=== PATIENT | male | born 1960 | race Caucasian/White ===

== ENCOUNTER 2020-06-04 17:53 | Inpatient (IN) ==
[2020-06-04 18:24] LABS: Basophils # 0.1 10*3/uL (0.0-0.2); Basophils % 0.5 % (0.0-0.8); Eosinophils # 0.3 10*3/uL (0.0-0.87); Eosinophils % 2.9 % (0.00-10.9); Hematocrit 43.8 VOL% (42.0-52.0); Hemoglobin 14.6 GM/DL (14.0-18.0); Immature Granulocytes % 0.3 %; Immature Granulocytes Absolute 0.03 #; Lymphocytes # 2.2 10*3/uL (1.4-4.0); Lymphocytes % 23.9 % (21.2-54.2); Mean Corpuscular HGB Conc 33.3 GM/DL (32-36); Mean Corpuscular Volume 88.3 FL (87-102); Mean Platelet Volume 9.9 FL (9.6-12.0); Monocytes % 7.9 % (1.7-12.7); Neutrophils % 64.5 % (38.7-73.9); Platelet Count 179 T/CUMM (130-400); Red Blood Count 4.96 MC/CUMM (3.8-5.5); Red Cell Distribution Width 13.9 % (9.3-17.3); White Blood Count 9.2 T/CUMM (4-12)
[2020-06-04 18:49] LABS: PT Patient Result 10.9 SECS (9.8-11.9)
[2020-06-04 18:59] LABS: Alanine Aminotransferase 50 U/L (16-61); Albumin 3.9 G/DL (3.4-5.0); Alkaline Phosphatase 84 U/L (45-117); Aspartate Amino Transferase 24 U/L (0-37); Bilirubin,Total < 0.39 MG/DL (0.2-1.0); Blood Urea Nitrogen 15 MG/DL (7-18); Calcium 9.2 MG/DL (8.5-10.1); Estimated Glom Filtration Rate 95 ML/MIN; Glucose 105 MG/DL (74-106); Osmolality,Calculated 283.1 MOS/KG (273-304); Total Protein 7.1 G/DL (6.4-8.3)
[2020-06-04] MEDS ORDERED: AMIODARONE INJ 450 MG in DEXTROSE 5% 241 ML IV SCH (20:12)
[2020-06-04] MEDS ORDERED: MAGNESIUM SULF RIDER 4 GM in PREMIX 1 EACH IV PRN (20:12)
[2020-06-04] MEDS ORDERED: MAGNESIUM SULF RIDER 2 GM in PREMIX 1 EACH IV PRN (20:12)
[2020-06-04 21:05] LABS: Bilirubin,Urine Negative (Negative); Blood, Urine Small mg/dL (Negative); Glucose,Urine (UA) Negative (Negative); Ketones,Urine Negative (Negative); Mucus,Urine Occasional /LPF (Occasional); Nitrite,Urine Negative (Negative); Protein,Urine Negative; RBC,Urine 2 /HPF (0-4); Squamous Epithelial Cell,Urine Occasional /HPF (0-10); Urine Appearance CLEAR (Clear); Urine Color Yellow (Yellow); Urine Specific Gravity 1.019 (1.001-1.035); Urine Urobilinogen < 2.0 EU/DL (0.2-1.0)
[2020-06-04 21:16] LABS: Barbiturates Screen,Urine Negative (Negative); Benzodiazepines Screen,Urine Negative (Negative); Cannabinoid Screen,Urine Negative (Negative); Opiate Screen,Urine Negative (Negative); Phencyclidine Screen,Urine Negative (Negative)
[2020-06-04] MEDS ORDERED: AMIODARONE INJ 150 MG in DEXTROSE 5% 100 ML IV ONE (22:30)
[2020-06-04] MEDS ORDERED: METOPROLOL TARTRATE 25 MG TABLET PO ONE (23:13)
[2020-06-04] MEDS: METOPROLOL TARTRATE 5 MG/5 ML VIAL IV SCH (23:21)
[2020-06-04] MEDS ORDERED: FUROSEMIDE 40 MG/4 ML VIAL IV ONE (23:39)
[2020-06-04] MEDS ORDERED: HYDROmorphone 2 MG/1 ML VIAL IV ONE (23:56)
[2020-06-05] MEDS ORDERED: MIDAZOLAM 10 MG/2 ML VIAL IV ONE (00:02)
[2020-06-05] MEDS ORDERED: diphenhydrAMINE CAP 25 MG CAPSULE PO ONE (00:03)
[2020-06-05] MEDS ORDERED: DIAZEPAM 5 MG TABLET PO ONE ×2 (00:04→09:06)
[2020-06-05] MEDS ORDERED: DIAZEPAM 5 MG TABLET ONE (00:13)
[2020-06-05] MEDS ORDERED: LIDOCAINE 1% 20 ML VIAL ONE (00:32)
[2020-06-05] MEDS ORDERED: MIDAZOLAM 2 MG/2 ML VIAL ONE (00:32)
[2020-06-05] MEDS ORDERED: HYDROmorphone 2 MG/1 ML VIAL ONE (00:32)
[2020-06-05] MEDS: METOPROLOL TARTRATE 5 MG/5 ML VIAL IV SCH ×2 (01:36→01:37)
[2020-06-05] MEDS: METOPROLOL TARTRATE 25 MG TABLET PO SCH ×2 (01:37→09:25)
[2020-06-05 02:25] LABS: Troponin I 0.527 NG/ML (0.00-0.045)
[2020-06-05] MEDS: LORazepam 2 MG/1 ML VIAL IV PRN ×2 (03:25→09:25)
[2020-06-05] MEDS: AMIODARONE INJ 450 MG in DEXTROSE 5% 241 ML IV SCH ×2 (04:49→16:21)
[2020-06-05 04:59] LABS: Basophils % 0.2 % (0.0-0.8); Eosinophils # 0.1 10*3/uL (0.0-0.87); Eosinophils % 1.1 % (0.00-10.9); Hematocrit 42.9 VOL% (42.0-52.0); Hemoglobin 14.4 GM/DL (14.0-18.0); Immature Granulocytes % 0.6 %; Immature Granulocytes Absolute 0.05 #; Lymphocytes # 1.5 10*3/uL (1.4-4.0); Lymphocytes % 16.7 % (21.2-54.2); Mean Corpuscular HGB Conc 33.6 GM/DL (32-36); Mean Corpuscular Volume 87.7 FL (87-102); Mean Platelet Volume 10.2 FL (9.6-12.0); Neutrophils % 74.4 % (38.7-73.9); Platelet Count 159 T/CUMM (130-400); Red Blood Count 4.89 MC/CUMM (3.8-5.5); Red Cell Distribution Width 13.8 % (9.3-17.3); White Blood Count 9.1 T/CUMM (4-12)
[2020-06-05 05:36] LABS: Alanine Aminotransferase 44 U/L (16-61); Albumin 3.7 G/DL (3.4-5.0); Alkaline Phosphatase 79 U/L (45-117); Aspartate Amino Transferase 22 U/L (0-37); Bilirubin,Total < 0.39 MG/DL (0.2-1.0); Blood Urea Nitrogen 13 MG/DL (7-18); Calcium 8.7 MG/DL (8.5-10.1); Estimated Glom Filtration Rate 106 ML/MIN; Glucose 139 MG/DL (74-106); Osmolality,Calculated 276.7 MOS/KG (273-304); Total Protein 7.4 G/DL (6.4-8.3)
[2020-06-05] MEDS: HYDROmorphone 2 MG/1 ML VIAL IV PRN ×2 (08:28→10:07)
[2020-06-05] MEDS ORDERED: diphenhydrAMINE 50 MG/1 ML VIAL IV ONE (09:06)
[2020-06-05] MEDS: ASPIRIN CHEW 81 MG TABLET PO SCH (09:24)
[2020-06-05] MEDS ORDERED: FUROSEMIDE 40 MG/4 ML VIAL IV ONE (09:48)
[2020-06-05] MEDS ORDERED: PROPRANOLOL 1 MG/1 ML VIAL IV ONE (10:52)
[2020-06-05 13:12] LABS: Bilirubin,Urine Negative (Negative); Blood, Urine Moderate mg/dL (Negative); Glucose,Urine (UA) Negative (Negative); Hyaline Casts,Urine 10 /LPF (0-3); Ketones,Urine Negative (Negative); Mucus,Urine Occasional /LPF (Occasional); Nitrite,Urine Negative (Negative); Protein,Urine Negative; RBC,Urine 2 /HPF (0-4); Urine Appearance CLEAR (Clear); Urine Color Straw (Yellow); Urine Urobilinogen < 2.0 EU/DL (0.2-1.0); WBC,Urine 1 /HPF (0-6)
[2020-06-05] MEDS: PROPRANOLOL 20 MG TABLET PO SCH ×3 (13:40→21:25)
[2020-06-06] MEDS: PROPRANOLOL 20 MG TABLET PO SCH ×6 (02:18→22:49)
[2020-06-06] MEDS: AMIODARONE INJ 450 MG in DEXTROSE 5% 241 ML IV SCH (07:50)
[2020-06-06] MEDS: ASPIRIN CHEW 81 MG TABLET PO SCH (08:03)
[2020-06-06] MEDS: LORazepam 2 MG/1 ML VIAL IV PRN (08:04)
[2020-06-06] MEDS: CLOPIDOGREL 75 MG TABLET PO SCH (10:51)
[2020-06-06] MEDS: EZETIMIBE 10 MG TABLET PO SCH (10:51)
[2020-06-06] MEDS: SACUBITRIL/VALSARTAN 49-51 MG TABLET PO SCH ×2 (11:00→20:35)
[2020-06-06] MEDS: AMIODARONE 200 MG TABLET PO SCH ×2 (12:18→20:32)
[2020-06-06] MEDS: ROSUVASTATIN 20 MG TABLET PO SCH (20:31)
[2020-06-06] MEDS: carvediloL 3.125 MG TABLET PO SCH (20:33)
[2020-06-07] MEDS: PROPRANOLOL 20 MG TABLET PO SCH ×6 (02:32→23:37)
[2020-06-07] MEDS: AMIODARONE INJ 450 MG in DEXTROSE 5% 241 ML IV SCH (02:46)
[2020-06-07] MEDS: SACUBITRIL/VALSARTAN 49-51 MG TABLET PO SCH ×2 (09:09→21:58)
[2020-06-07] MEDS: EZETIMIBE 10 MG TABLET PO SCH (09:09)
[2020-06-07] MEDS: ASPIRIN CHEW 81 MG TABLET PO SCH (09:10)
[2020-06-07] MEDS: CLOPIDOGREL 75 MG TABLET PO SCH (09:10)
[2020-06-07] MEDS: AMIODARONE 200 MG TABLET PO SCH ×2 (09:10→21:58)
[2020-06-07] MEDS: carvediloL 3.125 MG TABLET PO SCH ×2 (09:10→21:58)
[2020-06-07] MEDS ORDERED: PROPRANOLOL LA 80 MG CAPSULE PO SCH (17:00)
[2020-06-07] MEDS ORDERED: PROPRANOLOL 20 MG TABLET PO SCH (21:00)
[2020-06-07] MEDS: ROSUVASTATIN 20 MG TABLET PO SCH (21:58)
[2020-06-07] MEDS: DIAZEPAM 5 MG TABLET PO SCH (21:59)
[2020-06-08] MEDS: PROPRANOLOL 20 MG TABLET PO SCH ×3 (03:29→09:37)
[2020-06-08] MEDS: EZETIMIBE 10 MG TABLET PO SCH (09:36)
[2020-06-08] MEDS: SACUBITRIL/VALSARTAN 49-51 MG TABLET PO SCH ×2 (09:36→21:21)
[2020-06-08] MEDS: carvediloL 3.125 MG TABLET PO SCH ×2 (09:37→21:18)
[2020-06-08] MEDS: AMIODARONE 200 MG TABLET PO SCH ×2 (09:37→21:18)
[2020-06-08] MEDS: DIAZEPAM 5 MG TABLET PO SCH ×2 (09:37→21:18)
[2020-06-08] MEDS: CLOPIDOGREL 75 MG TABLET PO SCH (09:37)
[2020-06-08] MEDS: ASPIRIN CHEW 81 MG TABLET PO SCH (09:37)
[2020-06-08] MEDS: PROPRANOLOL LA 80 MG CAPSULE PO SCH ×2 (16:03→21:18)
[2020-06-08] MEDS: PROPRANOLOL 10 MG TABLET PO SCH ×2 (16:03→21:21)
[2020-06-09 05:51] LABS: Basophils # 0.1 10*3/uL (0.0-0.2); Basophils % 0.6 % (0.0-0.8); Eosinophils # 0.2 10*3/uL (0.0-0.87); Eosinophils % 2.6 % (0.00-10.9); Hematocrit 45.1 VOL% (42.0-52.0); Hemoglobin 14.5 GM/DL (14.0-18.0); Immature Granulocytes % 0.2 %; Immature Granulocytes Absolute 0.02 #; Lymphocytes # 1.9 10*3/uL (1.4-4.0); Lymphocytes % 23.7 % (21.2-54.2); Mean Corpuscular HGB Conc 32.2 GM/DL (32-36); Mean Corpuscular Volume 90.9 FL (87-102); Mean Platelet Volume 10.9 FL (9.6-12.0); Monocytes % 9.3 % (1.7-12.7); Neutrophils % 63.6 % (38.7-73.9); Platelet Count 181 T/CUMM (130-400); Red Blood Count 4.96 MC/CUMM (3.8-5.5); White Blood Count 8.2 T/CUMM (4-12)
[2020-06-09 06:05] LABS: Calcium 8.8 MG/DL (8.5-10.1); Osmolality,Calculated 285.1 MOS/KG (273-304)
[2020-06-09] MEDS: SACUBITRIL/VALSARTAN 49-51 MG TABLET PO SCH (08:56)
[2020-06-09] MEDS: PROPRANOLOL LA 80 MG CAPSULE PO SCH (08:56)
[2020-06-09] MEDS: carvediloL 3.125 MG TABLET PO SCH (08:57)
[2020-06-09] MEDS: PROPRANOLOL 10 MG TABLET PO SCH (08:57)
[2020-06-09] MEDS: ASPIRIN CHEW 81 MG TABLET PO SCH (08:57)
[2020-06-09] MEDS: CLOPIDOGREL 75 MG TABLET PO SCH (08:57)
[2020-06-09] MEDS: EZETIMIBE 10 MG TABLET PO SCH (08:57)
[2020-06-09] MEDS: DIAZEPAM 5 MG TABLET PO SCH (08:57)
[2020-06-09] MEDS: AMIODARONE 200 MG TABLET PO SCH (08:58)
[2020-06-09 15:10] VITALS: BP 98/55
== END 2020-06-09 17:10 | disposition home or self-care (01) | DRG 287 ==
LOC: N.ED 17:53 → N.EDINP 17:53 → N.TELES 19:39 → N.ICU 06-05 01:48 → N.TELES 06-06 14:07
PROVIDERS: ADMIT Internal Medicine Cardiovascular Disease; ATTEND Internal Medicine Cardiovascular Disease